=== PATIENT | male | born 1995 | race American Indian/Alaskan Native ===

== ENCOUNTER 2017-12-04 15:04 | Emergency (ER) | payer MEDICAID ==
[2017-12-04 17:06] LABS: BASO # 0.1 K/uL (0.0-0.2); BASO % 1.2 % (0.0-2.0); EOS # 0.2 K/uL (0.0-0.7); EOS % 4.5 % (0.0-4.0); HEMOGLOBIN 14.9 g/dL (12.0-18.0); LYMPH # 2.4 K/uL (1.0-4.3); MEAN CELL VOLUME 89.3 fL (80.0-94.0); MEAN CORPUSCULAR HEMOGLOBIN 31.2 pg (27.0-31.0); MEAN PLATELET VOLUME 10.3 fL (7.2-11.7); MONO # 0.4 K/uL (0.0-0.8); MONO % 9.6 % (0.0-10.0); NEUT # 1.6 K/uL (1.8-7.0); NEUT % 33.7 % (50.0-75.0); NRBC % 0.2 % (0.0-2.0); RBC 4.79 Mil/uL (4.40-5.90); RED CELL DISTRIBUTION WIDTH 12.8 % (11.5-14.5); WHITE BLOOD COUNT 4.6 K/uL (4.8-10.8)
[2017-12-04 17:21] LABS: ALB/GLOB RATIO 1.4 (1.0-2.1); ALBUMIN 4.4 g/dL (3.5-5.0); ALT/SGPT 37 U/L (21-72); AST/SGOT 31 U/L (17-59); BLOOD UREA NITROGEN 15 mg/dL (9-20); CALCIUM 9.3 mg/dl (8.6-10.4); GFR AFRICAN-AMERICAN > 60; GFR NON-AFRICAN AMERICAN > 60; LIPASE 89 U/L (23-300)
--- NOTE | 2017-12-04 17:33 | C.PDOC ---
History Of Present Illness 22yo male, presents to ER reporting he saw something red in his stool this morning. He states he has been having nausea with most meals and has been getting protonix and occasional Zofran. Patient is able to tolerate PO intake and digest most meals. He does report he has been fasting for the month of . Patient denies any abdominal pain, vomiting, fever, chills, and offers no other medical complaints. PMD: Dr. Romero Time Seen by Provider: 12/04/17 16:34 Chief Complaint (Nursing): GI Problem History Per: Patient History/Exam Limitations: no limitations Onset/Duration Of Symptoms: Days Current Symptoms Are (Timing): Still Present Past Medical History Reviewed: Historical Data, Nursing Documentation, Vital Signs Vital Signs: Last Vital Signs Temp 98.6 F 12/04/17 17:39 Pulse 63 12/04/17 17:39 Resp 17 12/04/17 17:39 BP 116/69 12/04/17 17:39 Pulse Ox 100 12/04/17 17:39 - Medical History PMH: No Chronic Diseases Surgical History: No Surg Hx Family History: States: No Known Family Hx - Social History Hx Alcohol Use: No Hx Substance Use: No - Immunization History Hx Tetanus Toxoid Vaccination: No Hx Influenza Vaccination: No Hx Pneumococcal Vaccination: No Review Of Systems Except As Marked, All Systems Reviewed And Found Negative. Constitutional: Negative for: Fever, Chills Gastrointestinal: Positive for: Nausea, Other (saw something red in stool). Negative for: Vomiting, Abdominal Pain, Diarrhea, Constipation Physical Exam - Physical Exam Appears: Non-toxic, No Acute Distress, Other (thin) Skin: Normal Color, Warm, Dry Head: Atraumatic, Normacephalic Eye(s): bilateral: Normal Inspection, PERRL, EOMI Oral Mucosa: Moist Neck: Supple Chest: Symmetrical Cardiovascular: Rhythm Regular Respiratory: Normal Breath Sounds Gastrointestinal/Abdominal: Normal Exam, Soft, No Tenderness Rectal: Other (light brown stool) Neurological/Psych: Oriented x3 ED Course And Treatment - Laboratory Results Result Diagrams: 12/04/17 17:00 12/04/17 17:00 O2 Sat by Pulse Oximetry: 99 (RA) Pulse Ox Interpretation: Normal Medical Decision Making Medical Decision Making: stable hgb and guaiac neg upper GI gastritis may be anxiety related pt tolerating PO "generally" and normal exam, labs/CMP do not suggest malnutrition. Disposition Doctor Will See Patient In The: Office Counseled Patient/Family Regarding: Studies Performed, Diagnosis - Disposition Referrals: Pancho Romero MD [Staff Provider] - Disposition: HOME/ ROUTINE Disposition Time: 17:33 Condition: GOOD Additional Instructions: NO blood in your stool today NORMAL Hemoglobin Continue Protonix 40 mg 9AM and 9PM to lower stomach and aid presumed healing of gastritis. Zofran tablets for nausea as needed GERD/Gastritis diet: avoid foods which make gastritis/GERD worse. Follow-up with your PMD or [employer] as pending. Instructions: Gastritis Forms: [facility] (Croatian) - Clinical Impression Clinical Impression: Stool color abnormal - Scribe Statement The provider has reviewed the documentation as recorded by the Scribe (Kierra Harris) Provider Attestation: All medical record entries made by the Scribe were at my direction and personally dictated by me. I have reviewed the chart and agree that the record accurately reflects my personal performance of the history, physical exam, medical decision making, and the department course for this patient. I have also personally directed, reviewed, and agree with the discharge instructions and disposition.
[2017-12-04 17:44] VITALS: BP 116/69; PULSE 63; RESP 17; TEMP 98.6
[2017-12-04 18:45] VITALS: O2SAT 99
== END 2017-12-04 17:44 | disposition home or self-care (01) ==
LOC: C.ER 15:04
DX: R19.5 Other fecal abnormalities (principal)
CPT/HCPCS: 80053; 83690; 85025; 99284; G0328